=== PATIENT | male | born 1955 | race Caucasian/White ===

== ENCOUNTER 2020-08-09 11:48 | Outpatient (CLI) | payer BC, SELFPAY ==
--- NOTE | ~2020-08-09 | XR_ITS ---
EXAMINATION: XR knee LT 3V EXAM DATE: 08/09/2020 12:15 INDICATION: M25.562 - Pain in left knee. TECHNIQUE: Three projections of the left knee. There is no prior study for comparison. FINDINGS: No evidence osteochondral defect or joint body in the left knee joint. Mild left patella r lateral tilt and subluxation. Small joint effusion. There is an old proximal fibular fracture. Tibi al femoral compartment unremarkable. No radiopaque foreign bodies identified. IMPRESSION: 1. Small left knee joint effusion. 2. Bilateral patellar lateral tilt and subluxation. Reviewed, dictated and finalized at location B. MANAGEMENT OFFICER
== END 2020-08-09 11:49 | disposition home or self-care (01) ==
PROVIDERS: PCP Family Medicine; Visit Provider Family Medicine
DX: M25.562 Pain in left knee (principal); M25.462 Effusion, left knee; S83.012A Lateral subluxation of left patella, initial encounter
CPT/HCPCS: 73562

== ENCOUNTER 2020-10-11 12:30 | Outpatient (RCR) | payer BC, SELFPAY ==
--- NOTE | 2020-09-21 15:27 | PTOPEVAL ---
PHYSICAL THERAPY EVALUATION AND PLAN OF CARE 09-21-20 Thank you for referring Maverick Chavez to [facility] for the diagnosis of L knee pain/ chondromalacia patella.? Maverick is scheduled to be seen for therapy? 2 x/week for 3 weeks. Please review, sign, date and return this plan of care ELVIN. I agree with and certify that the following plan of care is medically necessary. Referring Physician Date Referring Provider: Darius Hay MD *PT Outpatient Evaluation Document 09/21/20 14:05 NAVEEN (Rec: 09/21/20 15:27 NAVEEN [id number]) Outpatient Past Medical History Past Medical History Source of Past Medical History Recalled from Previous Visit, Confirmed with Patient/Family Neurological History Hx Neurological Disorders No Significant History Cardiovascular History Hx Cardiac Disorders No Significant History Respiratory History Hx Respiratory Disorders No Significant History Gastrointestinal History Hx Gastroesophageal Reflux Disease Yes: otc if needed Genitourinary History Hx Genitourinary Disorders No Significant History Musculoskeletal History Hx Fractures Yes: L ankle/foot- casted, non surgical Hx Other Musculoskeletal Disorders Yes: L shoulder injury/had PT; Hematological History Hx Hematological Disorders No Significant History Endocrine History Hx Endocrine Disorders No Significant History HEENT History Hx Cataracts Yes: start of cataracts Hx Tonsillectomy Yes Integumentary History Hx Skin Disorders No Significant History Reproductive History Hx Reproductive Disorders No Significant History Psychosocial History Hx Psychiatric Disorders No Significant History Pain History History of Any Previous or Ongoing No Significant History Instance of Pain Anesthesia History Hx Anesthesia Reactions No Significant History Other History Hx Other Medical Conditions Yes: had lost 65#, regained about 35# of it back Evaluation Information Problem Diagnosis L knee pain/ patella femoral chondromalacia Onset Mar 2020 Subjective Information gradual increase in knee pain, Query Text:As Reported By Patient/ no trauma or injury to knee; Family decreased activity level and weight gain; saw general dr, then to orthopedic dr; had injection into knee 09-01-20: helped pain for few days, then pain returned; Diagnostic Tests X-Rays For This Problem Yes: patella femoral dysplagia , lateral tilt MRI For This Problem No Other Tests For This Problem
--- NOTE | 2020-10-11 13:05 | PTOPEVAL ---
PHYSICAL THERAPY DISCHARGE 10-11-20 Refer to the clinical summary below for his status today, compared to the initial evaluation. All of the goals were achieved, except increase flexibility of L piriformis. Discharge PT services. He is to continue with his home exercise program. Thank you for referring Maverick Chavez to [facility].? Please review, sign, date and return this Discharge ELVIN. I agree with and certify that the following plan of care is medically necessary. Referring Physician Date Referring Provider: Darius Hay MD Document 10/11/20 12:30 NAVEEN (Rec: 10/11/20 13:05 NAVEEN [id number]) Assessment Status Discharge Subjective Information Maverick states: doing better, is Query Text:As Reported By Patient/ stronger and balance is Family better; no problems on stairs ; doing exercises without any problems; not having any pain ; agrees with discharge from PT services; Pain Assessment Timing of Pain Assessment Timing of Pain Assessment Assessment Self Report Self Report Pain Level 0 Pain Score Pain Score 0: Self Report Additional Pain Score Comments pt reports taping had helped his knee; issued written info with name of cover roll stretch and leukotape; instructed pt on application of tape; and to use PRN if knee pain increases: cover roll stretch over patella with 2 strips and with leukotape- strips to pull, start on L side and pull towards R side; to aid in patellar tracking; Lower Extremity Range of Motion General Lower Extremity Range of Motion Gross Lower Extremity Range of Motion L LE: supine SLR/hamstring 75' Comments ; hip IR 30'; piriformis stretch reports L tighter than R; Lower Extremity Muscle Strength Testing General Lower Extremity Strength Gross Lower Extremity Strength L LE: sitting: ankle circles x 20 reps with good coordination clock and counter clock ibanez; single leg standing x 20 seconds with good stability; with 3# ankle wt: supine SLR x 22 reps; side lying hip abduction x 20 reps; Gait Assessment Gait Assessment Ambulation Assistive Devices None Ambulation Ability
== END 2020-10-12 13:18 | disposition home or self-care (01) ==
LOC: ANHPT 12:30
PROVIDERS: PCP Family Medicine; Referring Provider Orthopaedic Surgery; Visit Provider Orthopaedic Surgery
DX: M25.562 Pain in left knee (principal)
CPT/HCPCS: 97110; 97140; 97161; 97530